=== PATIENT | male | born 1960 | race Caucasian/White ===

== ENCOUNTER 2024-12-29 17:21 | Emergency (ER) | payer OTHER, SELFPAY ==
--- NOTE | 2024-12-29 17:22 | ED_ITS ---
HPI - General Adult General Chief complaint: Wound/Laceration Stated complaint: SCALP LACERATION Time Seen by Provider: 12/29/24 17:21 Source: patient Mode of arrival: ambulatory Limitations: no limitations History of Present Illness HPI narrative: Patient is a 64-year-old male who presents with laceration to scalp that have been roughly 30 minutes prior to arrival. Patient was bending down to get the dog and hit head on the banister. put cayenne pepper on cut to stop bleeding. Bleeding is controlled on arrival. Denies any headache, vision changes. Last tetanus shot was roughly 10 years ago Related Data Allergies Allergy/AdvReac Type Severity Reaction Status Date / Time No Known Allergies Allergy Verified 12/29/24 17:30 Review of Systems Review of Systems: All systems reviewed & are unremarkable except as noted in HPI and below Constitutional: Constitutional: Denies body ache(s), Denies chills, Denies fatigue, Denies fever(s), Denies headache(s), Denies malaise and Denies weakness Eyes: Eyes: Denies blurry vision, Denies irritation and Denies loss of vision ENT: Denies otalgia, Denies headache(s), Denies nasal discharge, Denies sinus pain and Denies sore throat Cardiovascular: Cardiovascular: Denies chest pain, Denies irregular heart rhythm and Denies dyspnea Respiratory: Respiratory: Denies dyspnea Gastrointestinal: Gastrointestinal: Denies abdominal pain, Denies melena, Denies hematochezia, Denies diarrhea, Denies nausea and Denies vomiting Musculoskeletal: Musculoskeletal: Denies back pain, Denies myalgias and Denies arthralgias Integumentary/Breasts: Skin/Breast: Denies pruritus, Denies rash and Reports wounds Neurologic: Denies headache(s), Denies loss of vision and Denies weakness Psychiatric: Psychiatric: Reports no additional psychiatric complaints Endocrine: Endocrine: Denies fatigue PMFSH Comments At time of signature, agree with nursing past medical, surgical, social and family history. There is no relevant family history pertinent to the presenting complaint. Exam Const: General: cooperative, healthy appearing, comfortable, no acute distress and well nourished Nutritional Appearance: well nourished Orientation/consciousness: patient oriented x3 Limitations: no limitations HENMT: Head: normal to inspection, normocephalic and atraumatic Ears: hearing grossly normal bilaterally and external ears normal Face/Nose/Sinus: Normal external nose present, normal facial exam and face symmetric Face and sinus: normal facial exam and face symmetric Mouth: Yes lip normal Eyes: General: appearance normal, both eyes and all related structures Alignment and Position: alignment normal and position normal Periorbital: periorbital findings normal Eyelids: eyelids normal Pupils: Equal, round and reactive pupils present EOM: EOMs intact bilaterally Neck: Neck: normal visual inspection, full ROM and supple Chest: Chest palpation & inspection: normal inspection of the chest Resp: Effort & Inspection: normal respiratory effort and able to speak in complete sentences Auscultation: clear to auscultation bilaterally Cardio: Rate: regular rate Rhythm: regular rhythm Heart sounds: S1 normal heart sound present and S2 normal heart sound present GI: Inspection: normal to inspection Skin: General skin exam: normal color and no rashes or lesions noted Trauma: laceration (top of head) scalp linear, foreign body present (cayenne pepper), contaminated, involves subcutaneous tissue and sensation intact; not actively bleeding, does not involve muscle tissue and motor nerve function not intact Neuro: General: patient oriented x3 and moves all extremities Cranial nerves: Yes Equal, round and reactive pupils present Speech: normal speech Gait exam (Neuro): Normal gait present Extrem: General: normal to inspection, full ROM and no edema Psych: Appearance: grossly normal and well kempt Mental Status: mental status grossly normal Speech and movement: Normal speech and movement present Affect: normal affect Attitude: cooperative Thought process: Normal thought process present Course Course Emergency Course: Patient is aware of diagnosis, understands and agrees to treatment plan. Anticipatory guidance given. Patient agrees to follow-up as directed and is aware of reasons to seek care at the emergency department. Portions of this record may have been created with voice recognition software Level of Care: Express Care Visit Vital Signs Vital signs: Vital Signs Temperature 36.8 C 12/29/24 17:28 Pulse Rate 67 12/29/24 17:28 Respiratory Rate 16 12/29/24 17:28 Blood Pressure 167/99 H 12/29/24 17:28 Pulse Oximetry 99 12/29/24 17:28 Oxygen Delivery Autopap 12/29/24 17:28 Temperature 36.8 C 12/29/24 17:28 Pulse Rate 67 12/29/24 17:28 Respiratory Rate 16 12/29/24 17:28 Blood Pressure 155/101 H 12/29/24 18:05 Pulse Oximetry 99 12/29/24 17:28 Oxygen Delivery Autopap 12/29/24 17:28 Reviewed Procedures Laceration Laceration 1: Date: 12/29/24 Time: 17:50 Site: scalp Size (cm): 4 Description: linear Depth: simple, single layer Pre-repair: wound explored and irrigated extensively ====== Skin Level ====== Skin layer closed with: nohelia (7) ====== Subcutaneous Layer ====== ====== Muscle Layer ====== ====== Tendon Layer ====== Dressing: Procedure explained to patient. Verbal consent obtained. Wound irrigated extensively and patient tolerated well. Seven nohelia placed Medical Decision Making MDM Narrative Medical decision making narrative: Tetanus shot updated today. Seven nohelia placed Pt well hydrated appearing, in no respiratory distress, hemodynamically stable. Recommend supportive care. The patient is stable at time of discharge the clinical impression was discussed and the patient was given the opportunity to ask questions, which were addressed as completely as possible given the information available at present. Anticipatory guidance and return to care precautions were discussed and the importance of primary care follow-up was stressed and encouraged. The patient voiced understanding of the plan, indications to return, and the need for follow-up. Exam findings show no acute concerns or changes Patient is appropriate for outpatient treatment and follow-up. Differential Diagnosis Differential Diagnosis: Laceration, abrasion, avulsion Medical Records Medical records reviewed: Yes I reviewed the external patient's medical records. Vital Signs Vital Signs: Vital Signs Temperature 36.8 C 12/29/24 17:28 Pulse Rate 67 12/29/24 17:28 Respiratory Rate 16 12/29/24 17:28 Blood Pressure 167/99 H 12/29/24 17:28 Pulse Oximetry 99 12/29/24 17:28 Oxygen Delivery Autopap 12/29/24 17:28 Temperature 36.8 C 12/29/24 17:28 Pulse Rate 67 12/29/24 17:28 Respiratory Rate 16 12/29/24 17:28 Blood Pressure 155/101 H 12/29/24 18:05 Pulse Oximetry 99 12/29/24 17:28 Oxygen Delivery Autopap 12/29/24 17:28 Reviewed Discharge Plan Discharge Clinical Impression: Laceration of scalp Qualifiers: Encounter type: initial encounter Qualified Code(s): S01.01XA - Laceration without foreign body of scalp, initial encounter Patient Disposition: Home Condition: Stable Instructions: Head Laceration (ED) Additional Instructions: Keep wound clean, and dry. Apply antibiotic ointment twice daily. Cover with bandage as needed to prevent contamination. Clean with soap and water twice daily, but do not soak, take baths, or swim until wound is completely healed. Do not clean with hydrogen peroxide. If any signs of infection such as redness, swelling, increasing pain, drainage of purulent discharge, streaks up your extremity develop, seek medical attention immediately. Followup with your primary care provider in [7] days for staple removal. After sutures are removed, keep your scar out of the sun. You may use OTC silicone pad and/or scar massage with ointment (for 10-15 min a day) after one month. Talk to your doctor if you think you aredeveloping a keloid. Your blood pressure was elevated above 120/80 today at Urgent Care. This puts you above the threshold for follow up visit with a primary care provider. High blood pressure does not usually cause any symptoms, however it may lead to kidney failure, stroke, heart disease just to name a few if untreated . Many people are anxious when seeing a provider or nurse. As a result, you are not diagnosed with hypertension at this time unless your blood pressure is persistently high at two office visits at least one week apart. Some things that can help lower blood pressure are lifestyle modifications, such as light exercise, decreased salt in diet, and weight loss. It is important to follow up with a PCP about this within 1 week. Patient Language: [place]i Prescriptions: New mupirocin 2 % ointment 1 applic topical BID Qty: 15 0RF Follow-up/Referrals: Eleanor,Dmitry Siddiqui MD [Primary Care Provider] - 3 Days Time of Disposition: 17:55
[2024-12-29 17:28] VITALS: BP 167/99; PULSE 67; RESP 16; TEMP 36.8; O2SAT 99
[2024-12-29] MEDS: TETANUS,DIPHTHERIA,AC PERTUSSIS ADULT (0.5 ML) BOOSTRIX IM (17:53)
[2024-12-29 18:05] VITALS: BP 155/101
== END 2024-12-29 18:08 | disposition home or self-care (01) ==
PROVIDERS: Emergency Provider Nurse Practitioner Family; PCP Family Medicine
DX: S01.01XA Laceration without foreign body of scalp, initial encounter (principal); W22.09XA Striking against other stationary object, initial encounter; Z23 Encounter for immunization
CPT/HCPCS: 12002; 90471; 90715; 99213; G0463